=== PATIENT | male | born 1995 | race Caucasian/White ===

== ENCOUNTER 2023-04-02 18:54 | Emergency (ER) | payer MEDICAID ==
[2023-04-02 19:09] VITALS: BP 152/102; O2SAT 97
[2023-04-02] MEDS ORDERED: LIDOCAINE 1% 2 ML VIAL MC ONE (19:26)
[2023-04-02] MEDS ORDERED: cefTRIAXone 1 GM VIAL IM STA (19:26)
[2023-04-02] MEDS ORDERED: IBUPROFEN 800 MG TABLET PO STA (19:26)
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
== END 2023-04-02 20:19 | disposition home or self-care (01) ==
LOC: ED 18:54
DX: L72.3 Sebaceous cyst (principal); S01.511A Laceration without foreign body of lip, initial encounter; L08.9 Local infection of the skin and subcutaneous tissue, unspecified; K13.0 Diseases of lips; W50.0XXA Accidental hit or strike by another person, initial encounter
CPT/HCPCS: 80053; 83690; 85025; 96372; 99283; 99284